=== PATIENT | male | born 1990 | race Asian ===

== ENCOUNTER 2017-11-13 10:59 | Emergency (ER) | payer MEDICAID ==
[~2017-11-13] VITALS: Ht 190.5 cm; Wt 104.3 kg
[2017-11-13 11:05] VITALS: BP_SYST 125
--- NOTE | 2017-11-13 11:34 | NUR ---
Patient to ER bed 6 to gown for evaluation. Side rails up. Report given to Thomas LAMAR.
--- NOTE | 2017-11-13 11:34 | NUR ---
Pt report received from WILLARD Parisi. Pt c/o neck pain from playing basketball this AM. Pt states "it kind of feels like whip lash." Pt denies LOC, no H/A, denies N/V.
--- NOTE | 2017-11-13 11:40 | NUR ---
Dr. Alfred at bedside to assess pt.
[2017-11-13] MEDS ORDERED: IBUPROFEN 800 MG TABLET PO ONE (11:45)
--- NOTE | 2017-11-13 12:08 | NUR ---
Patient given written and verbal discharge instructions and verbalizes understanding. ER MD Alfred discussed with patient the results and treatment provided. Patient in stable condition. ID arm band removed. Rx of Motrin given. Patient educated on pain management and to follow up with PMD. Pain Scale 0. Opportunity for questions provided and answered.
[2017-11-13 12:16] VITALS: BP_SYST 123
== END 2017-11-13 12:15 | disposition home or self-care (01) ==
LOC: SED 10:59
DX: S20.219A Contusion of unspecified front wall of thorax, initial encounter (principal); W21.05XA Struck by basketball, initial encounter; Y93.67 Activity, basketball; Y92.89 Other specified places as the place of occurrence of the external cause; Y99.8 Other external cause status
CPT/HCPCS: 71045; 99283

== ENCOUNTER 2019-03-01 15:59 | Emergency (ER) | payer BC, MEDICAID ==
[~2019-03-01] VITALS: Ht 188 cm; Wt 104.8 kg
[2019-03-01 16:05] VITALS: BP_SYST 157
[2019-03-01] MEDS ORDERED: LIDOCAINE 1% 10 MG/ML, 20 ML MDV INJ ONE (16:15)
[2019-03-01 17:50] VITALS: BP_SYST 157
== END 2019-03-01 17:50 | disposition home or self-care (01) ==
LOC: SED 15:59
DX: S81.012A Laceration without foreign body, left knee, initial encounter (principal); R03.0 Elevated blood-pressure reading, without diagnosis of hypertension; W22.8XXA Striking against or struck by other objects, initial encounter; Y93.67 Activity, basketball; Y99.8 Other external cause status; Y92.89 Other specified places as the place of occurrence of the external cause
CPT/HCPCS: 12001; 73560; 99283; J2001

== ENCOUNTER 2023-01-29 13:19 | Emergency (ER) | payer MEDICAID ==
[~2023-01-29] VITALS: Ht 188 cm; Wt 117.9 kg
[2023-01-29 13:23] VITALS: BP_SYST 126
[2023-01-29] MEDS ORDERED: LORazepam 1 MG TABLET PO ONE (13:30)
[2023-01-29 13:49] VITALS: BP_SYST 134
== END 2023-01-29 13:50 | disposition home or self-care (01) ==
LOC: SED 13:19
DX: F41.0 Panic disorder [episodic paroxysmal anxiety] (principal); R20.2 Paresthesia of skin; R42 Dizziness and giddiness; R06.02 Shortness of breath; Z79.899 Other long term (current) drug therapy
CPT/HCPCS: 93005; 99283